=== PATIENT | male | born 1970 | race Caucasian/White ===

== ENCOUNTER 2020-06-07 16:38 | Outpatient (CLI) | payer BC, SELFPAY | END 2020-06-07 16:39 | disposition home or self-care (01) | LOC: ANHCOVIDVC 16:38 | PROVIDERS: PCP Family Medicine | DX: Z23 Encounter for immunization (principal) | CPT/HCPCS: 0001A; 91300 ==

== ENCOUNTER 2020-06-28 16:30 | Outpatient (CLI) | payer BC, SELFPAY | END 2020-06-28 16:31 | disposition home or self-care (01) | LOC: ANHCOVIDVC 16:30 | PROVIDERS: PCP Family Medicine | DX: Z23 Encounter for immunization (principal) | CPT/HCPCS: 0002A; 91300 ==

== ENCOUNTER 2021-12-21 17:02 | Emergency (ER) | payer BC, SELFPAY ==
--- NOTE | ~2021-12-21 | XR_ITS ---
EXAMINATION: XR chest 1V portable INDICATION: Cough, COVID 19 positive TECHNIQUE: Portable AP chest at 2042 hours COMPARISON: None available FINDINGS: The lungs are free of acute opacities. No pleural effusion or pneumothorax. The cardiomedia stinal silhouette is normal. The visualized bones and soft tissues are unremarkable. IMPRESSION: 1. No acute cardiopulmonary abnormality. Reviewed, dictated and finalized at location F.
[2021-12-21 17:13] VITALS: BP 119/85; PULSE 96; RESP 20; TEMP 36.6; O2SAT 99
[2021-12-21 20:07] VITALS: BP 124/94; PULSE 79; RESP 20; TEMP 36.5; O2SAT 96
--- NOTE | 2021-12-21 20:22 | ED.FEVER ---
HPI - Fever General Chief Complaint: Fever <HALIE Ling Last Filed: 12/22/21 00:46> Stated Complaint: COVID+, weakness, light headed <HALIE Ling Last Filed: 12/22/21 00:46> Time Seen by Provider: 12/21/21 19:52 <HALIE Ling Last Filed: 12/22/21 00:46> Source: patient <HALIE Ling Last Filed: 12/22/21 00:46> Mode of arrival: ambulatory <HALIE Lnig Last Filed: 12/22/21 00:46> Limitations: no limitations <HALIE Ling Last Filed: 12/22/21 00:46> History of Present Illness HPI Narrative: Patient is a 51 y/o male who presents to the ED with c/o generalized weakness and lightheadedness. Patient was diagnosed with COVID 19 on 12/16 and started on Paxlovid on 12/18. He states today he began feeling weak and lightheaded, which prompted his presentation. He has had a mild intermittent cough and poor appetite, but denies any focal weakness, headache, muscle aches, nausea, vomiting, abdominal pain, chest pain, difficulty breathing, pleuritic pain, BLE pain or edema, fever, syncope. He is vaccinated for COVID. <HALIE Ling Last Filed: 12/22/21 00:46> Related Data Allergies/Adverse Reactions: Allergies Allergy/AdvReac Type Severity Reaction Status Date / Time Penicillins Allergy Unknown Unknown Verified 12/29/21 15:48 ALL CILLINS Allergy Mild Rash Uncoded 12/29/21 15:48 <HALIE Ling Last Filed: 12/22/21 00:46> Review of Systems Review of Systems: CONSTITUTIONAL: Reports generalized weakness, poor appetite. Denies fever, chills, or sweats. EYES: Denies visual changes, redness, or discharge. ENT: Denies rhinorrhea, congestion, sore throat, or otalgia. CARDIOVASCULAR: Denies chest pain, palpitations, or BLE edema. RESPIRATORY: Reports mild cough. Denies pleuritic pain, dyspnea. GASTROINTESTINAL: Denies abdominal pain, nausea, vomiting. MUSCULOSKELETAL: Denies myalgia, BLE pain. NEUROLOGIC: Reports lightheadedness. Denies syncope, headache, numbness, or focal weakness. <Monica Brewster PA-C - Last Filed: 12/22/21 00:46> All systems reviewed & are unremarkable except as noted in HPI and below <Monica Brewster PA-C - Last Filed: 12/22/21 00:46> PMFSH Past Medical History Medical History: Medical History Psoriasis Psoriatic arthritis <Monica Brewster PA-C Last Filed: 12/22/21 00:46> Surgical History Surgical History: Surgical History No pertinent past surgical history <Monica Brewster PA-C - Last Filed: 12/22/21 00:46> Family History Family History: Family History Father Hypertension <HALIE Ling Last Filed: 12/22/21 00:46> Social History Social History: Social History Smoking packs per day: 1 Smoking cigarettes per day: 20.0 Years smoked: 8 Smoking pack-years: 8.00 Smoking status: Former smoker Tobacco type: cigarettes Second hand tobacco smoke exposure: No Smoking end date: 03/01/98 Alcohol intake: current Substance use: never Substance use type: does not use Gender identity (if verbalized by the patient): Male Sexual Orientation (if Verbalized by the Patient): Straight or Heterosexual Spiritual care concerns: No <HALIE Ling Last Filed: 12/22/21 00:46> Exam Narrative: GENERAL: Fatigued appearing, well-nourished, non-toxic, in no acute distress. HEAD: Normocephalic, atraumatic. NECK: Supple. No adenopathy, no masses. RESPIRATORY: Airway patent, respirations nonlabored. Clear to auscultation bilaterally, no rales, rhonchi, wheezing. Occasional coughing on exam. CARDIOVASCULAR: Regular rate and rhythm without murmu
[2021-12-21 20:44] VITALS: BP 118/83; BP 119/87; BP 127/79; PULSE 70; PULSE 74; PULSE 89
[2021-12-21 20:54] LABS: Basophils Percent Auto 0.4 % (0.2-1.2); Eosinophils Percent Auto 0.8 % (0-4.4); Hematocrit 47.3 % (42.0-52.0); Hemoglobin 16.4 g/dL (14.0-18.0); Immature Granulocyte Absolute 0.01 K/mm3 (0.00-0.031); Immature Granulocyte Percent A 0.2 % (0-0.5); Lymphocytes Absolute Auto 2.15 K/mm3 (0.9-3.2); Lymphocytes Percent Auto 41.3 % (18.3-44.2); Mean Corpuscular HGB Conc 34.7 g/dl (32-36); Mean Corpuscular Hemoglobin 31.7 pg (26-34); Mean Corpuscular Volume 91.5 fl (80-100); Mean Platelet Volume 9.8 fl (7.4-10.4); Monocytes Absolute Auto 0.5 K/mm3 (0.1-0.6); Neutrophils Absolute Auto 2.5 K/mm3 (1.3-6.7); Neutrophils Percent Auto 48.3 % (45.5-73.1); Platelet Count Result 150 k/mm3 (150-375); Red Blood Count 5.17 M/mm3 (4.6-6.20); Red Cell Distribution Width 12.7 % (11.5-14.5); White Blood Count 5.2 K/mm3 (4.5-10.0)
[2021-12-21 21:21] LABS: Alanine Aminotransferase 96 U/L (6-50); Albumin Level 4.2 g/dL (3.5-5.1); Alkaline Phosphatase 78 U/L (38-126); Anion Gap 14 mmol/L (8-16); Aspartate Amino Transferase 76 U/L (17-59); Bilirubin,Total 0.8 mg/dL (0.2-1.3); Blood Urea Nitrogen 21 mg/dL (9-20); Calcium 8.4 mg/dL (8.4-10.2); Carbon Dioxide 28 mmol/L (22-30); Chloride 98 mmol/L (98-107); Estimated CRCL calculation 82 ml/min; Estimated Glomerular Filt Rate > 60; Glucose 96 mg/dL (65-110); Potassium 3.7 mmol/L (3.4-5.0); Sodium 140 mmol/L (137-145)
== END 2021-12-21 21:58 | disposition home or self-care (01) ==
PROVIDERS: Physician Assistant; Emergency Provider Emergency Medicine; PCP Family Medicine
DX: U07.1 COVID-19 (principal); R74.01 Elevation of levels of liver transaminase levels; L40.50 Arthropathic psoriasis, unspecified; Z87.891 Personal history of nicotine dependence
CPT/HCPCS: 36415; 71045; 80053; 85025; 99283

== ENCOUNTER 2022-05-16 16:09 | Emergency (ER) | payer BC, SELFPAY ==
[2022-05-16 16:20] VITALS: BP 145/83; PULSE 73; RESP 14; TEMP 36.3; O2SAT 98
--- NOTE | 2022-05-16 16:21 | ECG_ITS ---
Measurements Intervals [place] Rate: 86 P: 64 GA: 174 QRS: -84 QRSD: 103 T: 67 QT: 363 QTc: 435 Interpretive Statements SINUS RHYTHM LEFT ATRIAL ENLARGEMENT INCOMPLETE RIGHT BUNDLE BRANCH BLOCK LEFT ANTERIOR FASCICULAR BLOCK BASELINE ARTIFACT- I, II, III, AVR, AVL ABNORMAL ECG NO PREVIOUS ECG AVAILABLE FOR COMPARISON Electronically Signed On 05-16-2022 21:39:13 CDT by Feliz Garcia D.O.
--- NOTE | 2022-05-16 16:30 | ED.GENADULT ---
HPI - General Adult General Chief complaint: Dizziness Stated complaint: SOB/ High B/P Time Seen by Provider: 05/16/22 16:20 Source: patient Mode of arrival: ambulatory Limitations: no limitations History of Present Illness HPI narrative: patient is a 52-year-old male that presents with shortness of breath, chest pain, fatigue for a week that is worsening. Get Short of breath just by walking up 1 flight of stairs. states he is sleeping for 10 hours a day and still tired. patient states has had 2 episodes of chest pain in the past 1 in his 20s 1 in his 30s and was given a beta-bud for treatment. Patient's states he was only on them for 1 month and then taken off. patient states his blood pressure has gradually risen over the last week. denies any pain shooting down left arm, jaw pain. Related Data Home Medications Medication Instructions Recorded Confirmed No Home Medications 05/16/22 05/16/22 Allergies Allergy/AdvReac Type Severity Reaction Status Date / Time Penicillins Allergy Unknown Unknown Verified 05/16/22 17:25 ALL CILLINS Allergy Mild Rash Uncoded 05/16/22 16:15 Review of Systems Review of Systems: All systems reviewed & are unremarkable except as noted in HPI and below Constitutional: Constitutional: Denies body ache(s), Reports fatigue, Denies fever(s), Denies headache(s), Reports malaise and Denies weakness Eyes: Eyes: Denies loss of vision ENT: Denies otalgia, Denies headache(s), Denies nasal discharge, Denies sinus pain and Denies sore throat Cardiovascular: Cardiovascular: Reports chest pain, Denies irregular heart rhythm and Reports dyspnea Respiratory: Respiratory: Reports dyspnea Gastrointestinal: Gastrointestinal: Denies abdominal pain, Denies melena, Denies hematochezia, Denies diarrhea, Denies nausea and Denies vomiting Musculoskeletal: Musculoskeletal: Denies back pain, Denies myalgias and Denies arthralgias Integumentary/Breasts: Skin/Breast: Denies pruritus and Denies rash Neurologic: Denies headache(s), Denies loss of vision and Denies weakness Psychiatric: Psychiatric: Reports no additional psychiatric complaints PMFSH Past Medical History Medical History Psoriasis Psoriatic arthritis Surgical History Surgical History No pertinent past surgical history Family History Family History Father Hypertension Social History Social History Smoking packs per day: 1 Smoking cigarettes per day: 20.0 Years smoked: 8 Smoking pack-years: 8.00 Smoking status: Former smoker Tobacco type: cigarettes Second hand tobacco smoke exposure: No Smoking end date: 03/01/98 Alcohol intake: current Substance use: never Substance use type: does not use Living arrangements: with family Occupation/Education: occupation Gender identity (if verbalized by the patient): Male Sexual Orientation (if Verbalized by the Patient): Straight or Heterosexual Spiritual care concerns: No Comments At time of signature, agree with nursing past medical, surgical, social and family history. There is no relevant family history pertinent to the presenting complaint. Exam Const: General: cooperative, healthy appearing, comfortable, no acute distress and well nourished Nutritional Appearance: well nourished Orientation/consciousness: patient oriented x3 Limitations: no limitations HENMT: Head: normal to inspection, normocephalic and atraumatic Ears: external ears normal Face/Nose/Sinus: Normal external nose present, normal facial exam and face symmetric Face and sinus: normal facial exam and face symmetric Mouth: Yes lip normal Eyes: General: appearance normal, both eyes and all related structures Alignment and Position: alignment normal and positio
== END 2022-05-16 16:33 | disposition home or self-care (01) ==
LOC: EXPCOLL 16:13
PROVIDERS: Emergency Provider Nurse Practitioner Family; PCP Family Medicine
DX: R07.9 Chest pain, unspecified (principal)
CPT/HCPCS: 93005; 99213; G0463

== ENCOUNTER 2022-05-16 16:56 | Emergency (ER) | payer BC, SELFPAY ==
[2022-05-16] VITALS (15 sets, daily range): BP systolic 116–159; BP diastolic 79–102; PULSE 74–89; RESP 11–18; TEMP 36.3; O2SAT 98–100
--- NOTE | ~2022-05-16 | XR_ITS ---
EXAMINATION: XR chest 2V Exam Date/Time: 05/16/2022 17:40 CDT HISTORY: SOB FATIGUE LETHARGY X 1 WK Comparison: 12/21/2021. RESULT: Lines, tubes, and devices: None. Lungs and pleura: Clear. Cardiomediastinal silhouette: Stable. Other: No acute osseous or upper abdominal finding. IMPRESSION: No acute cardiopulmonary process. Reviewed, dictated and finalized at location K.
--- NOTE | 2022-05-16 17:02 | ECG_ITS ---
Measurements Intervals [place] Rate: 70 P: 62 LA: 179 QRS: -75 QRSD: 100 T: 36 QT: 385 QTc: 415 Interpretive Statements SINUS RHYTHM POSSIBLE LEFT ATRIAL ENLARGEMENT INCOMPLETE RIGHT BUNDLE BRANCH BLOCK LEFT ANTERIOR FASCICULAR BLOCK BORDERLINE T WAVE ABNORMALITY- INFERIOR LEADS ABNORMAL ECG NO PREVIOUS ECG AVAILABLE FOR COMPARISON Electronically Signed On 05-17-2022 8:05:15 CDT by Feliz Garcia D.O.
[2022-05-16 17:21] LABS: Basophils Absolute Auto 0.1 K/mm3 (0.0-0.1); Basophils Percent Auto 0.6 % (0.2-1.2); Eosinophils Absolute Auto 0.2 K/mm3 (0-0.3); Eosinophils Percent Auto 1.8 % (0-4.4); Hematocrit 48.5 % (42.0-52.0); Hemoglobin 16.8 g/dL (14.0-18.0); Immature Granulocyte Absolute 0.04 K/mm3 (0.00-0.031); Immature Granulocyte Percent A 0.4 % (0-0.5); Lymphocytes Absolute Auto 3.55 K/mm3 (0.9-3.2); Lymphocytes Percent Auto 31.8 % (18.3-44.2); Mean Corpuscular HGB Conc 34.6 g/dl (32-36); Mean Corpuscular Hemoglobin 32.2 pg (26-34); Mean Corpuscular Volume 92.9 fl (80-100); Mean Platelet Volume 9.5 fl (7.4-10.4); Monocytes Absolute Auto 0.8 K/mm3 (0.1-0.6); Neutrophils Absolute Auto 6.5 K/mm3 (1.3-6.7); Neutrophils Percent Auto 58.4 % (45.5-73.1); Platelet Count Result 240 k/mm3 (150-375); Red Blood Count 5.22 M/mm3 (4.6-6.20); Red Cell Distribution Width 12.4 % (11.5-14.5); White Blood Count 11.2 K/mm3 (4.5-10.0)
[2022-05-16 17:35] LABS: D Dimer 0.28 ug/mL (<0.48)
[2022-05-16 17:36] LABS: Alanine Aminotransferase 38 U/L (6-50); Albumin Level 4.7 g/dL (3.5-5.1); Alkaline Phosphatase 106 U/L (38-126); Anion Gap 9 mmol/L (8-16); Aspartate Amino Transferase 32 U/L (17-59); Bilirubin,Total 0.8 mg/dL (0.2-1.3); Blood Urea Nitrogen 19 mg/dL (9-20); Calcium 8.7 mg/dL (8.4-10.2); Carbon Dioxide 29 mmol/L (22-30); Chloride 99 mmol/L (98-107); Estimated CRCL calculation 74 ml/min; Estimated Glomerular Filt Rate > 60; Glucose 95 mg/dL (65-110); Potassium 3.7 mmol/L (3.4-5.0); Sodium 137 mmol/L (137-145)
--- NOTE | 2022-05-16 18:00 | ED.SOB ---
HPI - SOB/Dyspnea General Chief Complaint: Shortness of Breath/Dyspnea Stated Complaint: chest pain Time Seen by Provider: 05/16/22 18:00 Source: patient and RN notes reviewed Mode of arrival: ambulatory Limitations: no limitations History of Present Illness HPI Narrative: 52 years old white male drove himself to the emergency room complaining of fatigue, chest pressure, shortness of breath, 10 hours sleep a day since having COVID in November 2021 gradually getting worse mainly over the last 10 days. He denies any fever, chills, nausea, vomiting. Patient also complaining of that his hands and feet feeling cold like low blood circulation going through them. Patient does not smoke or drink or uses drugs, does not take medicine at home. Related Data Home Medications Medication Instructions Recorded Confirmed No Home Medications 05/16/22 05/16/22 Allergies Allergy/AdvReac Type Severity Reaction Status Date / Time Penicillins Allergy Unknown Unknown Verified 05/16/22 17:25 ALL CILLINS Allergy Mild Rash Uncoded 05/16/22 16:15 Review of Systems Review of Systems: All systems reviewed & are unremarkable except as noted in HPI and below PMFSH Past Medical History Medical History Psoriasis Psoriatic arthritis Surgical History Surgical History No pertinent past surgical history Family History Family History Father Hypertension Social History Social History Smoking packs per day: 1 Smoking cigarettes per day: 20.0 Years smoked: 8 Smoking pack-years: 8.00 Smoking status: Former smoker Tobacco type: cigarettes Second hand tobacco smoke exposure: No Smoking end date: 03/01/98 Alcohol intake: current Substance use: never Substance use type: does not use Living arrangements: with family Occupation/Education: occupation Gender identity (if verbalized by the patient): Male Sexual Orientation (if Verbalized by the Patient): Straight or Heterosexual Spiritual care concerns: No Exam Narrative: General appearance: Well-developed, well-nourished, looks depressed Skin: Normal color Head: Normocephalic, nontraumatic Eyes: Clear conjunctiva ENT: Oropharynx normal, ears normal, nose normal Neck: Supple, nontender Chest and respiratory: Airway patent, no respiratory distress, no accessory muscle use Heart: Regular rate/rhythm Abdomen: Soft, nontender, no organomegaly, quiet bowel sounds Vascular: Normal peripheral pulses, normal capillary refill. Musculoskeletal: Normal range of motion, nontender back Neurologic: Alert and oriented ?3, [employer] is normal as tested, no gross motor deficit Course Reevaluation(s) Reevaluation #1: No changes since arrival to the emergency room on the time of discharge Date: 05/16/22 Time: 18:38 Vital Signs Vital signs: Vital Signs Temperature 36.3 C L 05/16/22 17:00 Pulse Rate 89 05/16/22 17:00 Respiratory Rate 18 05/16/22 17:00 Blood Pressure 159/102 H 05/16/22 17:00 Pulse Oximetry 100 05/16/22 17:00 Oxygen Delivery Room Air 05/16/22 17:00 Temperature 36.3 C L 05/16/22 17:00 Pulse Rate 86 05/16/22 17:24 Respiratory Rate 11 L 05/16/22 17:19 Blood Pressure 136/88 05/16/22 17:19 Pulse Oximetry 98 05/16/22 17:19 Oxygen Delivery Room Air 05/16/22 17:00 MDM - SOB/Dyspnea MDM Narrative Medical decision making narrative: Patient presents with multiple symptoms after having COVID November 2021. Physical examination was unremarkable exc
[2022-05-16 18:02] LABS: NT Pro B Type Natriuretic Pept < 20 pg/mL (19.9-100); Troponin I < 0.012 ng/mL (0.000-0.034)
--- NOTE | 2022-05-16 18:55 | PCRCNOTE ---
G CANCELLED PER DR. NEAL
== END 2022-05-16 18:59 | disposition home or self-care (01) ==
PROVIDERS: Emergency Provider Emergency Medicine; PCP Family Medicine
DX: U09.9 Post COVID-19 condition, unspecified (principal); F32.A Depression, unspecified; Z87.891 Personal history of nicotine dependence
CPT/HCPCS: 36415; 36600; 71046; 80053; 83880; 84443; 84484; 85025; 85380; 93005; 99283

== ENCOUNTER 2022-11-13 21:11 | Emergency (ER) | payer BC, SELFPAY ==
--- NOTE | ~2022-11-13 | XR_ITS ---
EXAMINATION: XR chest 2V DATE: 11/13/2022 21:43 INDICATION: Shortness of breath and chest pain TECHNIQUE: PA and lateral views of the chest are obtained. COMPARISON: 05/16/2022 FINDINGS: The lungs are free of acute opacities. No pleural effusion or pneumothorax. The cardiomedia stinal silhouette is normal. There is mild thoracic spondylosis. IMPRESSION: 1. No acute cardiopulmonary abnormality. Reviewed, dictated and finalized at location F.
[2022-11-13 21:20] VITALS: BP 150/82; PULSE 78; RESP 18; TEMP 36.6; O2SAT 99
--- NOTE | 2022-11-13 21:24 | ECG_ITS ---
Measurements Intervals [place] Rate: 76 P: 65 [place]: 175 QRS: -78 QRSD: 100 T: 74 QT: 377 QTc: 426 Interpretive Statements SINUS RHYTHM LEFT ATRIAL ENLARGEMENT INCOMPLETE RIGHT BUNDLE BRANCH BLOCK LEFT ANTERIOR FASCICULAR BLOCK ABNORMAL ECG COMPARED TO ECG 05/16/2022 17:07:02 NO SIGNIFICANT CHANGES Electronically Signed On 11-14-2022 7:23:38 CDT by Feliz Garcia D.O.
[2022-11-13] MEDS: ASPIRIN 81 MG CHEWABLE TABLET 324 MG PO (21:33)
[2022-11-13 21:37] LABS: Basophils Absolute Auto 0.1 K/mm3 (0.0-0.1); Basophils Percent Auto 0.7 % (0.2-1.2); Eosinophils Absolute Auto 0.3 K/mm3 (0-0.3); Eosinophils Percent Auto 2.7 % (0-4.4); Hematocrit 45.6 % (42.0-52.0); Hemoglobin 15.4 g/dL (14.0-18.0); Immature Granulocyte Absolute 0.05 K/mm3 (0.00-0.031); Immature Granulocyte Percent A 0.5 % (0-0.5); Lymphocytes Percent Auto 35.2 % (18.3-44.2); Mean Corpuscular HGB Conc 33.8 g/dl (32-36); Mean Corpuscular Hemoglobin 31.7 pg (26-34); Mean Corpuscular Volume 93.8 fl (80-100); Mean Platelet Volume 9.6 fl (7.4-10.4); Monocytes Absolute Auto 0.9 K/mm3 (0.1-0.6); Monocytes Percent Auto 8.6 % (2.6-8.5); Neutrophils Absolute Auto 5.2 K/mm3 (1.3-6.7); Neutrophils Percent Auto 52.3 % (45.5-73.1); Platelet Count Result 221 k/mm3 (150-375); Red Blood Count 4.86 M/mm3 (4.6-6.20); Red Cell Distribution Width 12.5 % (11.5-14.5)
[2022-11-13 21:49] LABS: Alanine Aminotransferase 40 U/L (6-50); Albumin Level 4.4 g/dL (3.5-5.1); Alkaline Phosphatase 92 U/L (38-126); Anion Gap 5 mmol/L (8-16); Aspartate Amino Transferase 37 U/L (17-59); Bilirubin,Total 0.6 mg/dL (0.2-1.3); Blood Urea Nitrogen 19 mg/dL (9-20); Carbon Dioxide 30 mmol/L (22-30); Chloride 103 mmol/L (98-107); Estimated CRCL calculation 67 ml/min; Estimated Glomerular Filt Rate > 60; Glucose 103 mg/dL (65-110); Lipase 85 U/L (23-300); Potassium 3.7 mmol/L (3.4-5.0); Sodium 138 mmol/L (137-145)
[2022-11-13 21:50] LABS: Prothrombin Time 13.7 Seconds (11.1-14.7)
[2022-11-13 21:51] LABS: Partial Thromboplastin Time 31.9 SECONDS (22.3-36.8)
[2022-11-13 22:00] LABS: Troponin I < 0.012 ng/mL (0.000-0.034)
[2022-11-14 00:04] VITALS: BP 119/69; PULSE 61; RESP 18; O2SAT 98
[2022-11-14 00:53] LABS: Troponin I < 0.012 ng/mL (0.000-0.034)
[2022-11-14 03:13] VITALS: PULSE 70; O2SAT 99
[2022-11-14 03:14] VITALS: BP 168/87; PULSE 75; RESP 13; TEMP 36.4; O2SAT 100
[2022-11-14 03:15] VITALS: O2SAT 100
[2022-11-14 03:42] VITALS: BP 116/79; BP 118/81; BP 118/85; PULSE 71; PULSE 75; PULSE 88
[2022-11-14 03:50] LABS: Troponin I < 0.012 ng/mL (0.000-0.034)
--- NOTE | 2022-11-14 04:00 | PC.NURSE ---
Patient did a walking SPO2 test and the lowest the SPO2 dropped was 97%
--- NOTE | 2022-11-14 04:16 | ED.GENADULT ---
HPI - General Adult General Chief complaint: Chest Pain Stated complaint: cp Time Seen by Provider: 11/14/22 03:20 History of Present Illness HPI narrative: Patient 52-year-old gentleman who presents the emergency department with chief complaint of chest discomfort. Patient reports for several weeks he has been having generalized malaise and weakness the patient states that he is also had tightness in his chest been ongoing for the same amount of time patient reports the symptoms are not worsened by anything nor they improved by anything the patient states he has prior history of a mitral valve prolapse reports that he has talked to his primary doctor who set him up for stress test and a cardiac echo the patient states that it still several weeks away and was concerned tonight and decided to come to the emergency department. Related Data Allergies Allergy/AdvReac Type Severity Reaction Status Date / Time Penicillins Allergy Unknown Unknown Verified 05/22/22 15:51 ALL CILLINS Allergy Mild Rash Uncoded 05/22/22 15:51 Review of Systems Review of Systems: A 10 system review of systems was completed on the patient and is negative except for what is stated in the HPI. Nursing and ancillary documentation was reviewed. [facility] Past Medical History Medical History Psoriasis Psoriatic arthritis Surgical History Surgical History No pertinent past surgical history Family History Family History Father Hypertension Social History Social History Smoking packs per day: 1 Smoking cigarettes per day: 20.0 Years smoked: 8 Smoking pack-years: 8.00 Smoking status: Former smoker Tobacco type: cigarettes Second hand tobacco smoke exposure: No Smoking end date: 03/01/98 Alcohol intake: current Substance use: never Substance use type: does not use Living arrangements: with family Occupation/Education: occupation Gender identity (if verbalized by the patient): Male Sexual Orientation (if Verbalized by the Patient): Straight or Heterosexual Spiritual care concerns: No Exam Narrative: GENERAL: Well-appearing, well-nourished, and in no acute distress. HEAD: Normocephalic, atraumatic. EYES: PERRLA and EOMI. ENT: Nares clear, no rhinorrhea or epistaxis. Mucous membranes moist. NECK: Supple. CHEST: Clear to auscultation. No respiratory distress. HEART: Regular rate and rhythm. No murmur heard. Normal peripheral pulses. ABDOMEN: Soft, nontender, nondistended, normal active bowel sounds. EXTREMITIES: Normal range of motion. No edema. SKIN: Warm, dry, no rash. NEURO: No focal deficits. Alert and oriented x3. PSYCH: Normal mood and affect. Course Vital Signs Vital signs: Vital Signs Temperature 36.6 C 11/13/22 21:20 Pulse Rate 78 11/13/22 21:20 Respiratory Rate 18 11/13/22 21:20 Blood Pressure 150/82 H 11/13/22 21:20 Pulse Oximetry 99 11/13/22 21:20 Oxygen Delivery Room Air 11/13/22 21:20 Temperature 36.4 C L 11/14/22 03:14 Pulse Rate 88 11/14/22 03:42 Respiratory Rate 13 11/14/22 03:14 Blood Pressure 118/85 11/14/22 03:42 Pulse Oximetry 100 11/14/22 03:15 Oxygen Delivery Room Air 11/14/22 03:15 Medical Decision Making MDM Narrative Medical decision making narrative: Differential diagnosis includes dysrhythmia, ACS, pneumothorax, electrolyte abnormality, pneumonia Laboratory studies were obtained and patient showed normal CBC electrolytes are within normal limits troponin was negative with 0-hour and 3-hour liver enzymes are normal lipase was normal. EKG showed no evidence of acute ischemic changes no evidence of dysrhythmia Chest x-ray showed no focal infiltrate Patient was able to ambulate w
[2022-11-14 04:40] VITALS: BP 122/79; PULSE 63; RESP 13; TEMP 36.6; O2SAT 99
== END 2022-11-14 04:42 | disposition home or self-care (01) ==
PROVIDERS: Emergency Provider Emergency Medicine; PCP Family Medicine
DX: R07.89 Other chest pain (principal); R53.1 Weakness; L40.9 Psoriasis, unspecified; L40.50 Arthropathic psoriasis, unspecified; Z87.891 Personal history of nicotine dependence
CPT/HCPCS: 36415; 71046; 80053; 83690; 84484; 85025; 85610; 85730; 93005; 99284; A9270

== ENCOUNTER 2022-12-19 08:42 | Outpatient (CLI) | payer BC, SELFPAY ==
--- NOTE | 2022-12-19 08:49 | ECHO_ITS ---
Patient Info Name: Oneil Santiago Age: 52 years : 1970 Gender: Male Ht: 72 in Wt: 155 lbs BSA: 1.88 m2 HR: 68 bpm BP: 128 / 78 mmHg Heart Rhythm: Sinus Rhythm Technical Quality: Good Exam Date: 12/19/2022 9:02 AM Exam Location: [facility] Pulmonary Patient Status: Outpatient Admit Date: 12/19/2022 Staff Ordering Physician: Ese Keating PA-C Belt Sander: Muriel Powell RDCS Attending Provider: Figueroa Hernández PA-C Referring Physician: Zuri JAMES; Exam Type: CA echo doppler color flow Study Info Indications - chest pressure, lipscomb, fatigue Complete two-dimensional, color flow and Doppler transthoracic echocardiogram is performed. Summary 1. Complete two-dimensional, color flow and Doppler transthoracic echocardiogram is performed. 2. Left ventricular chamber dimension is normal. 3. Left ventricular systolic function is normal, estimated at 65-70%. 4. The left ventricular diastolic function is normal. 5. There is mild aortic valve regurgitation. 6. There is trace tricuspid valve regurgitation. 7. No pulmonary hypertension, estimated pulmonary arterial systolic pressure is 20 mmHg. Left Ventricle Tissue doppler E/e' is not performed. Left ventricular chamber dimension is normal. Left ventricular systolic function is normal, estimated at 65-70%. The left ventricular diastolic function is normal. Right Ventricle Right ventricular systolic function is normal and with normal TAPSE 2.5 cm. Right ventricular chamber dimension is normal. Left Atria Left atrial chamber dimension is normal. Right Atria Right atrial chamber dimension is normal. Aortic Valve The aortic valve is not well visualized. Cannot determine number of aortic valve leaflets. There is no aortic valve stenosis. There is mild aortic valve regurgitation. Pulmonic Valve There is no pulmonic regurgitation. Mitral Valve There is no mitral valve stenosis. There is no mitral valve regurgitation. Tricuspid Valve There is trace tricuspid valve regurgitation. No pulmonary hypertension, estimated pulmonary arterial systolic pressure is 20 mmHg. Pericardium/Pleural There is no pericardial effusion. Inferior Vena Cava Normal inferior vena cava with >50% collapse upon inspiration consistent with normal right atrial pressure, 5 mmHg. Aorta The aortic root size at the sinus of Valsalva is normal. Left Ventricular Outflow Tract Name Value Normal LVOT 2D LVOT Diameter 1.9 cm LVOT Doppler LVOT Peak Gradient 3 mmHg LVOT Mean Gradient 1 mmHg LVOT VTI 22 cm LVOT VTI/AV VTI Ratio 0.8 LVOT Stroke Volume 61 ml LVOT CO 3.3 l/min LVOT CI 1.8 l/min/m2 Pulmonic Valve Name Value Normal RVOT Doppler RVOT Peak Gradient 2 mmHg
== END 2022-12-19 08:43 | disposition home or self-care (01) ==
PROVIDERS: PCP Family Medicine; Visit Provider Physician Assistant
DX: R07.89 Other chest pain (principal); I35.1 Nonrheumatic aortic (valve) insufficiency; I07.1 Rheumatic tricuspid insufficiency; R06.09 Other forms of dyspnea; R53.83 Other fatigue; U09.9 Post COVID-19 condition, unspecified
CPT/HCPCS: 93306

== ENCOUNTER 2023-04-30 19:52 | Emergency (ER) | payer BC, SELFPAY ==
[2023-04-30] VITALS (9 sets, daily range): BP systolic 123–157; BP diastolic 79–89; PULSE 58–86; RESP 12–19; TEMP 36.2; O2SAT 97–99
--- NOTE | ~2023-04-30 | XR_ITS ---
EXAMINATION: XR chest 2V DATE: 04/30/2023 20:25 INDICATION: Chest pain TECHNIQUE: Frontal and lateral views of the chest are obtained COMPARISON: 11/13/2022 FINDINGS: The lungs are free of acute opacities. No pleural effusion or pneumothorax. The cardiomedia stinal silhouette is normal. There is mild thoracic spondylosis. A cardiac monitoring device projects anteriorly over the mid thorax. IMPRESSION: 1. No acute cardiopulmonary abnormality. Reviewed, dictated and finalized at location F. AND [employer] OPERATOR
--- NOTE | 2023-04-30 19:53 | ECG_ITS ---
Measurements Intervals [place] Rate: 71 P: 63 ME: 181 QRS: -80 QRSD: 99 T: 35 QT: 381 QTc: 415 Interpretive Statements SINUS RHYTHM LEFT AXIS DEVIATION POSSIBLE LEFT ATRIAL ENLARGEMENT INCOMPLETE RIGHT BUNDLE BRANCH BLOCK POOR R WAVE PROGRESSION, ANTERIOR LEADS CONSIDER INFERIOR INFARCT, AGE INDETERMINATE BASELINE ARTIFACT- I, III ABNORMAL ECG COMPARED TO ECG 11/13/2022 21:31:17 NO SIGNIFICANT CHANGES Electronically Signed On 04-30-2023 20:23:42 HAND SLITTER by Feliz Garcia D.O.
[2023-04-30 20:13] LABS: Basophils Absolute Auto 0.1 K/mm3 (0.0-0.1); Basophils Percent Auto 0.6 % (0.2-1.2); Eosinophils Absolute Auto 0.4 K/mm3 (0-0.3); Eosinophils Percent Auto 3.9 % (0-4.4); Hematocrit 47.8 % (42.0-52.0); Hemoglobin 15.9 g/dL (14.0-18.0); Immature Granulocyte Absolute 0.03 K/mm3 (0.00-0.031); Immature Granulocyte Percent A 0.3 % (0-0.5); Lymphocytes Absolute Auto 3.39 K/mm3 (0.9-3.2); Lymphocytes Percent Auto 35.4 % (18.3-44.2); Mean Corpuscular HGB Conc 33.3 g/dl (32-36); Mean Corpuscular Hemoglobin 31.5 pg (26-34); Mean Corpuscular Volume 94.7 fl (80-100); Mean Platelet Volume 9.7 fl (7.4-10.4); Monocytes Absolute Auto 0.7 K/mm3 (0.1-0.6); Monocytes Percent Auto 7.4 % (2.6-8.5); Neutrophils Percent Auto 52.4 % (45.5-73.1); Platelet Count Result 211 k/mm3 (150-375); Red Blood Count 5.05 M/mm3 (4.6-6.20); Red Cell Distribution Width 12.7 % (11.5-14.5); White Blood Count 9.6 K/mm3 (4.5-10.0)
[2023-04-30 20:22] LABS: Alanine Aminotransferase 29 U/L (6-50); Albumin Level 4.5 g/dL (3.5-5.1); Alkaline Phosphatase 124 U/L (38-126); Anion Gap 8 mmol/L (8-16); Aspartate Amino Transferase 33 U/L (17-59); Bilirubin,Total 0.6 mg/dL (0.2-1.3); Blood Urea Nitrogen 23 mg/dL (9-20); Calcium 9.2 mg/dL (8.4-10.2); Carbon Dioxide 25 mmol/L (22-30); Chloride 106 mmol/L (98-107); Estimated CRCL calculation 82 ml/min; Estimated Glomerular Filt Rate > 60; Glucose 92 mg/dL (65-110); Lipase 145 U/L (23-300); Potassium 3.7 mmol/L (3.4-5.0); Sodium 139 mmol/L (137-145)
[2023-04-30 20:29] LABS: Prothrombin Time 13.1 Seconds (11.1-14.7)
[2023-04-30 20:30] LABS: Partial Thromboplastin Time 30.5 SECONDS (22.3-36.8)
[2023-04-30 20:34] LABS: Troponin I < 0.012 ng/mL (0.000-0.034)
--- NOTE | 2023-04-30 22:59 | ECG_ITS ---
Measurements Intervals [place] Rate: 63 P: 33 [place]: 175 QRS: -73 QRSD: 101 T: 39 QT: 403 QTc: 415 Interpretive Statements SINUS RHYTHM INCOMPLETE RIGHT BUNDLE BRANCH BLOCK LEFT ANTERIOR FASCICULAR BLOCK ABNORMAL ECG COMPARED TO ECG 04/30/2023 19:58:04 NO SIGNIFICANT CHANGES Electronically Signed On 05-01-2023 9:02:05 GROUP UNDERWRITER by Feliz Garcia D.O.
--- NOTE | 2023-04-30 23:18 | PC.NURSE ---
Report received from ANANYA Villasenor. Assumed care of patient at this time.
[2023-04-30 23:35] LABS: Troponin I < 0.012 ng/mL (0.000-0.034)
[2023-05-01 00:02] VITALS: PULSE 62; RESP 14; O2SAT 97
--- NOTE | 2023-05-01 00:16 | ED.GENADULT ---
HPI - General Adult General Chief complaint: Chest Pain Stated complaint: chest pain x2 hours Time Seen by Provider: 04/30/23 22:47 Source: patient Mode of arrival: ambulatory Limitations: no limitations History of Present Illness HPI narrative: This is a 53-year-old male with PMH of psoriasis who presents to the ED with chief complaint of chest pain this started around 1700 today. Reports that he subsequently had left arm tingling and scalp tingling the following the chest pain. Also reports feeling bilateral cold sensation to the hands. States that he started to lightheaded after the chest pain as well. Denies syncope or vomiting or diaphoresis. Denies any exertional component to the chest pain. He states he comes and goes at random. He was seated when it started. Denies shortness of breath, blood clot history, leg swelling, fevers, chills, cough. He is being seen by Cardiology and being worked up currently and has his Holter monitor appointment next week. Related Data Allergies Allergy/AdvReac Type Severity Reaction Status Date / Time Penicillins Allergy Unknown Unknown Verified 04/08/23 11:27 ALL CILLINS Allergy Mild Rash Uncoded 04/08/23 11:27 Review of Systems Review of Systems: All systems as dictated in [facility] Past Medical History Medical History Psoriasis Psoriatic arthritis Surgical History Surgical History No pertinent past surgical history Family History Family History Father Hypertension Social History Social History Smoking packs per day: 1 Smoking cigarettes per day: 20.0 Years smoked: 8 Smoking pack-years: 8.00 Smoking status: Former smoker Tobacco type: cigarettes Second hand tobacco smoke exposure: No Smoking end date: 03/01/98 Alcohol intake: current Substance use: never Substance use type: does not use Living arrangements: with family Occupation/Education: occupation Gender identity (if verbalized by the patient): Male Sexual Orientation (if Verbalized by the Patient): Straight or Heterosexual Spiritual care concerns: No Exam Narrative: GENERAL: Well-appearing, well-nourished, and in no acute distress. HEAD: Normocephalic, atraumatic. EYES: PERRLA and EOMI. ENT: Nares clear, no rhinorrhea or epistaxis. Mucous membranes moist. Oropharynx without tonsillar hypertrophy exudate or other lesions. NECK: Supple. No adenopathy or masses. CHEST: No respiratory distress. Clear to auscultation. No wheezes rales or rhonchi HEART: Regular rate and rhythm. No murmur heard. Normal peripheral pulses. ABDOMEN: Soft, nontender, nondistended, normal active bowel sounds. MSK: Normal range of motion. No edema. SKIN: Warm, dry, no rash. NEURO: Alert and oriented x3. No focal deficits. PSYCH: Normal mood and affect. Course Vital Signs Vital signs: Vital Signs Temperature 97.1 F L 04/30/23 19:54 Pulse Rate 86 04/30/23 19:54 Respiratory Rate 18 04/30/23 19:54 Blood Pressure 157/89 H 04/30/23 19:54 Pulse Oximetry 99 04/30/23 19:54 Oxygen Delivery Room Air 04/30/23 19:54 Temperature 97.1 F L 04/30/23 19:54 Pulse Rate 66 05/01/23 00:46 Respiratory Rate 16 05/01/23 00:46 Blood Pressure 120/100 H 05/01/23 00:46 Pulse Oximetry 96 05/01/23 00:46 Oxygen Delivery Room Air 04/30/23 19:54 Medical Decision Making [facility] Narrative Medical decision making narrative: This is a 53 year male who presents to the ED with chief complaint of chest pain beginning today. Vitals are normal. Exam is benign. EKG shows sinus rhythm without acute ischemic findings. Unchanged from previous in October of 2022. Lab work shows normal CBC, CMP. Serial troponins are negative. Patient's pain is reducing w
[2023-05-01 00:43] VITALS: PULSE 72; RESP 19; O2SAT 95
[2023-05-01 00:45] VITALS: PULSE 65; RESP 18; O2SAT 96
[2023-05-01 00:46] VITALS: BP 120/100; PULSE 66; RESP 16; O2SAT 96
== END 2023-05-01 01:00 | disposition home or self-care (01) ==
PROVIDERS: Emergency Medicine; Emergency Provider Physician Assistant; PCP Family Medicine
DX: R07.9 Chest pain, unspecified (principal); Z87.891 Personal history of nicotine dependence
CPT/HCPCS: 36415; 71046; 80053; 83690; 84484; 85025; 85610; 85730; 93005; 99284

== ENCOUNTER 2023-07-09 09:34 | Outpatient (CLI) | payer BC, SELFPAY ==
--- NOTE | ~2023-07-09 | MR_ITS ---
EXAMINATION: MR brain IAC wo/w con DATE: 07/09/2023 10:39 INDICATION: Dizziness and giddiness. Headache. TECHNIQUE: Magnetic resonance imaging (MRI) of the brain, brainstem, and internal auditory canals was performed without and with 14 mL MultiHance intravenous contrast. COMPARISON: None. FINDINGS: There are scattered areas of nonspecific increased T2-weighted signal intensity in the cere bral white matter, which is within normal limits for the patient's age. There is no intracranial hemo rrhage, acute infarction, or abnormal intracranial mass lesion. The ventricles are normal in size. Th ere is mucosal thickening in the paranasal sinuses. The orbits are normal. The mastoid air cells are normal. The internal auditory canals and inner ears and tympanic cavities are normal. IMPRESSION: 1. Normal brain. Reviewed, dictated and finalized at location A. IMPRESSION: 1. Normal brain.
== END 2023-07-09 09:35 ==
LOC: MICIMG 09:35
PROVIDERS: PCP Family Medicine; Visit Provider Physician Assistant
DX: R42 Dizziness and giddiness (principal)
CPT/HCPCS: 70553; A9577

== ENCOUNTER 2023-08-26 12:52 | Outpatient (CLI) | payer BC, SELFPAY | END 2023-08-26 12:53 | disposition home or self-care (01) | LOC: ANHAUDIO 12:53 | PROVIDERS: PCP Family Medicine; Visit Provider Otolaryngology | DX: H90.3 Sensorineural hearing loss, bilateral (principal); H93.19 Tinnitus, unspecified ear | CPT/HCPCS: 92557; 92567 ==

== ENCOUNTER 2024-10-20 10:12 | Outpatient (CLI) | payer BC, SELFPAY ==
--- NOTE | ~2024-10-20 | XR_ITS ---
XR lumbar spine 2-3V 10/20/2024 10:49 Indication: Low back pain Procedure: 3 views lumbar spine Comparison: No prior studies for comparison. Findings: There is moderate disc narrowing at L3-4, L4-5 and L5-S1. There is facet hypertrophy at L4-5 and L5-S1. There is levoscoliosis centered at L3. No acute fracture, subluxation or dislocation. No evidence for spondylolisthesis. Impression: 1: Moderate lumbar spondylosis with levoscoliosis. Reviewed, dictated and finalized at location O. Impression: 1: Moderate lumbar spondylosis with levoscoliosis.
--- NOTE | ~2024-10-20 | XR_ITS ---
XR hip RT min 2V 10/20/2024 10:49 Indication: Low back pain Procedure: 2 views right hip Comparison: No prior studies for comparison. Findings: No fracture, subluxation or dislocation. No significant joint space narrowing. No soft tissue abnormality. No foreign bodies. Impression: 1: No significant bone or joint abnormality. Reviewed, dictated and finalized at location O. Impression: 1: No significant bone or joint abnormality.
--- NOTE | ~2024-10-20 | XR_ITS ---
XR sacroiliac joints min 3V 10/20/2024 10:49 Indication: Low back pain Procedure: 3 view cervical spine Comparison: No prior studies for comparison. Findings: Sacroiliac joints are symmetric bilaterally without significant degenerative change, erosion or ankylosis. Sacral foramen are symmetric. Impression: 1: No significant abnormality of sacroiliac joints. Reviewed, dictated and finalized at location O. Impression: 1: No significant abnormality of sacroiliac joints.
== END 2024-10-20 10:13 | disposition home or self-care (01) ==
LOC: MICIMG 10:13
PROVIDERS: PCP Orthopaedic Surgery; Visit Provider Physician Assistant Medical
DX: M47.816 Spondylosis without myelopathy or radiculopathy, lumbar region (principal); M41.87 Other forms of scoliosis, lumbosacral region; M25.551 Pain in right hip
CPT/HCPCS: 72100; 72202; 73502